=== PATIENT | female | born 1980 | race Caucasian/White ===

== ENCOUNTER → 2018-11-07 15:37 | Outpatient (CLI) | payer OTHER, SELFPAY ==
--- NOTE | 2018-11-07 15:45 | XR_ITS ---
PROCEDURE: XR ANKLE RT MIN 3V CLINICAL INDICATION: ACUTE RIGHT ANKLE PAIN COMPARISON: No exams were available for comparison FINDINGS: No fracture, dislocation, lytic change, or blastic change evident. No significant degenerative change IMPRESSION: No acute findings. Dictated by: Robert Jensen MD 11/07/2018 16:19 Electronically signed by Robert Jensen MD in [place] 11/07/2018 16:20
== END ==
PROVIDERS: PCP Family Medicine; Visit Provider Family Medicine
DX: M25.571 Pain in right ankle and joints of right foot (principal)
CPT/HCPCS: 73610

== ENCOUNTER 2020-11-18 18:45 | Emergency (ER) | payer OTHER, SELFPAY ==
[2020-11-18 19:30] VITALS: BP 141/96; PULSE 66; RESP 20; TEMP 37; O2SAT 96; BMI 30.2
--- NOTE | 2020-11-18 19:56 | HMH.EDUTC ---
[place] Disposition Clinical Impression: URI (upper respiratory infection) Qualifiers: URI type: unspecified URI Qualified Code(s): J06.9 - Acute upper respiratory infection, unspecified Disposition: Home, Self-Care Condition on Discharge: Good Instructions: Sore Throat, Acute Bronchitis Additional Instructions: ? Start antibiotic today. Be sure to complete entire prescription even if feeling better ? Monitor temp. Tylenol every 4 hours as needed and / or ibuprofen every 6 hours as needed ( As long as your primary care physician has told you that it ok to take both. For fever/aches/pains ER if no less than 101 despite Tylenol or Motrin ? Humidifier/vaporizer or hot steamy shower ? Mucinex for your cough Be sure to drink lots of water with this medication and while taking it *Start steroid today. Helps with inflammation therefore, cough and wheezing. Follow directions on the package. Reviewed side effects. Patient reports taking them before. Follow up IMMEDIATELY for new or worsening of symptoms OR no noticeable improvement over the next 48-72 hours. 911 immediately for any life threatening symptoms such as chest pain or difficulty breathing You were tested for today for COVID19 your test result should be back in the next 24-48 hours, you was given handout on how to log into the [facility] Portal to check your results if you have trouble you may call the [facility] You was given a handout with instructions for Self Quarantine and Self isolation for while you wait on test results and what to do if they are positive If you are positive the Health Dept will be contacting you also Make sure to take your Vitamins Vit. C Vit D and Zinc if you can take them Prescriptions: guaiFENesin [Mucinex 600mg tablet] 1 - 2 tab PO Q12HP PRN #20 tab PRN Reason: Congestion Transmission Status: Pending to [facility] # methylPREDNISolone [Medrol 4mg tab] 4 mg PO DIRECTED #21 tab Transmission Status: Pending to [facility] # Azithromycin [Z-Alex 250mg Tab] 250 mg PO DIRECTED #6 tab Transmission Status: Pending to [facility] # Referrals: Steve De Dios MD [Primary Care Provider] - As needed Forms: Work/School Release Time of Disposition: 20:07 Medical Decision Making - David Inquiry Pt receiving controlled substance: No David was queried for this patient: No Vital Signs: 11/18/20 19:30 Temperature 98.6 F Temperature Source Oral Pulse Rate [Right Brachial] 66 Respiratory Rate 20 Blood Pressure [Right Arm] 141/96 H Blood Pressure Mean [Right Arm] 111 Blood Pressure Source [Right Arm] Automatic Cuff 02 Sat by Pulse Oximetry 96 Oxygen Delivery Method Room Air [place] HPI - General Stated complaint: covid test, cough, SOA, body aches Time Seen by Provider: 11/18/20 19:56 Mode of Arrival: Ambulatory Source of Information: Patient Limitations: No Limitations Description of Symptoms (Recalled from Triage Doc. by RN): PATIENT C/O CHEST CONGESTION, COUGHING UP MUCOUS, AND SORE THROAT THAT STARTED YESTERDAY HEENT Symptoms (Recalled from RN notes): Yes Resp Symptoms (Recalled from RN notes): No Skin Symptoms (Recalled from RN notes): No MS Symptoms (Recalled from RN notes): No Functional Status (Recalled from RN notes): WNL - History of Present Illness Provider Complaint: Patient states that she is an everyday smoker States that she gets bronchitis about this time every year States that she has been having some cough and drainage States that at times she is coughing up some mucous Denies SOA at this time States that she wanted to come in and get it checked before it got too bad - Related Data Previous Rx's Medication Instructions Recorded Azithromycin [Z-Alex 250mg Tab] 250 mg PO DIRECTED #6 tab 11/18/20 guaiFENesin [Mucinex 600mg tablet] 1 - 2 tab PO Q12HP PRN #20 tab 11/18/20 methylPREDNISolone [Medrol 4mg 4 mg PO DIRECTED #21 tab 11/18/20 tab] Allergies Allergy/AdvReac
[2020-11-18 20:10] VITALS: BP 141/96; PULSE 66; RESP 20; TEMP 37; O2SAT 96
== END 2020-11-18 20:13 | disposition home or self-care (01) ==
PROVIDERS: Emergency Provider Nurse Practitioner; PCP Family Medicine
DX: J06.9 Acute upper respiratory infection, unspecified (principal); Z20.822 Contact with and (suspected) exposure to COVID-19; F17.210 Nicotine dependence, cigarettes, uncomplicated
CPT/HCPCS: 99202; C9803; G0463; U0003; U0005

== ENCOUNTER 2023-11-17 06:24 | Emergency (ER) | payer OTHER, SELFPAY ==
[2023-11-17] VITALS (8 sets, daily range): BP systolic 139–167; BP diastolic 84–116; PULSE 54–93; RESP 16–18; TEMP 36.8–36.9; O2SAT 92–99; BMI 28.8
--- NOTE | 2023-11-17 06:38 | CT_ITS ---
FINAL REPORT TECHNIQUE: Oral and IV contrast enhanced exam This study was performed with techniques to keep radiation doses as low as reasonably achievable, (ALARA). Individualized dose reduction techniques using automated exposure control or adjustment of mA and/or kV according to the patient''s size were employed. CLINICAL HISTORY: abd/rectal pain, BRBPR COMPARISON: None FINDINGS: Abdomen: Lung bases are clear. The gallbladder is unremarkable. Liver has an unremarkable CT appearance. The gallbladder is unremarkable in appearance. The spleen, pancreas and adrenal glands are unremarkable. Kidneys show no mass or obstruction. There is long segment wall thickening extending from the splenic flexure of the colon distally, infectious colitis versus inflammatory bowel disease most likely, as ischemia would be unusual in this age group. The central mesenteric vessels are patent. Pelvis: The appendix is not visualized. The wall thickening in the descending colon extends to involve the proximal sigmoid colon. No fluid collection or adenopathy is seen. There is no perirectal abscess identified, and an IUD is present in the pelvis. IMPRESSION: Long segment wall thickening of the descending and proximal sigmoid colon, most likely infectious colitis or inflammatory bowel disease. Reviewed, Interpreted and Dictated by Gregorio Cardona MD Transcribed by Marion Cunningham Authenticated and . [facility]
--- NOTE | 2023-11-17 06:40 | ED_ITS ---
Discharge Plan Disposition Patient Disposition: Home, Self-Care Prescriptions Prescriptions: New ondansetron 4 mg tablet,disintegrating 4 mg PO Q6H PRN (Reason: nausea and vomiting) Qty: 14 0RF No Action azithromycin 250 MG tablet 250 mg PO DIRECTED Qty: 6 0RF Rx Instructions: Take two (2) tablets on day #1, then one (1) tablet day #2 thru #5 methylprednisolone 4 MG tablet 4 mg PO DIRECTED Qty: 21 0RF Rx Instructions: Take as directed on package instructions guaifenesin 600 MG tablet extended release 12hr 1 - 2 tab PO Q12HP PRN (Reason: Congestion) Qty: 20 0RF Referrals Follow up/Referrals: Case Licea MD [Staff Physician] - See instructions Steve De Dios MD [Primary Care Provider] - See instructions Activity Restrictions/Add. Instructions Additional Instructions/Restrictions: Take Zofran as needed for nausea and vomiting. Take Tylenol and ibuprofen for abdominal pain. Call GI doctor clinic to schedule an outpatient follow-up appointment. If you have a bowel movement, collected and present the sample to the lab. Outpatient order has been placed. Clinical Impressions Clinical Impression: Colitis Abdominal pain Qualifiers: Abdominal location: generalized Qualified Code(s): R10.84 - Generalized abdominal pain Instructions Patient Instructions: DI for Acute Abdominal Pain Print Language Print Language: [place] Island[place] Discharge ED Provider: Juan Sierra General Adult HPI <Juan Sierra MD - Last Filed: 11/17/23 07:16> General Chief complaint: Abdominal Pain Stated complaint: abd pain, bleeding from rectum Time Seen by Provider: 11/17/23 06:29 History of Present Illness HPI narrative: 42-year-old female presents for abdominal pain and bloated blood per rectum. She reports that she suffers from constipation and was having crampy abdominal pain this morning. She had a large bowel movement and then subsequently had repeated episodes of bloody stool with bright red blood per rectum. She reports she has never had anything like this happen before, no history of IBS, IBD etc. She denies history of hemorrhoids fissures etc. She has an IUD and does not typically have menstrual periods. She reports no fever at home. The abdominal pain she describes as primarily lower abdominal/rectal, but was having some upper abdominal pain earlier today. No prior surgeries. Related Data Previous Rx's ?Medication ?Instructions ?Recorded azithromycin 250 mg tablet 250 mg PO DIRECTED #6 tabs 11/18/20 guaifenesin 600 mg tablet, 1 - 2 tab PO Q12HP PRN Congestion 11/18/20 extended release 12 hr #20 tabs methylprednisolone 4 mg tablet 4 mg PO DIRECTED #21 tabs 11/18/20 ondansetron 4 mg disintegrating 4 mg PO Q6H PRN nausea and 11/17/23 tablet vomiting #14 tabs Allergies Allergy/AdvReac Type Severity Reaction Status Date / Time No Known Allergies Allergy Verified 11/18/20 19:56 PFSH <Juan Sierra MD - Last Filed: 11/17/23 07:16> [facility] Disclaimer: The information contained in this section may have been updated after the patient was seen, as this information can be updated by other users. Social History Smoking Status: Current every day smoker alcohol intake: never current occupational status: student Travel in the last 8 weeks: None <Juan Sierra MD - Last Filed: 11/17/23 07:16> ROS Obtained: Yes All systems reviewed & no additional complaints except as documented Physical Exam <Juan Sierra MD - Last Filed: 11/17/23 07:16> General General appearance: alert Comment: Uncomfortable appearing Head Head exam: atraumatic and normocephalic Eye Eye exam: Present normal appearance, PERRL and EOMI ENT ENT exam: Present normal oropharynx and normal external ear exam Neck Neck exam: Present normal inspection and full ROM Chest Chest inspection: Present normal inspection and symmetric chest wall rise; Absent tenderness Respiratory Respiratory exam: Present normal lung sounds bilaterally; Absent respiratory distress Cardiovascular Cardiovascular exam: Present regular rate and normal rhythm Abdominal Exam Abdominal exam: Present soft and tenderness (Mild); Absent distention or guarding Rectal Exam Rectal exam: Present normal inspection and normal rectal tone; Absent hemorrhoids comment: No anal fissures, no blood in the rectal vault Extremities Exam Extremities exam: Present normal inspection; Absent edema or joint swelling Back Exam Back exam: Present normal inspection; Absent tenderness Neurological Exam Neurological exam: Present alert and oriented X3; Absent motor sensory deficit Psychiatric Psychiatric exam: Present normal affect and normal mood Skin Skin exam: Present warm, dry and normal color Lymphatic Lymphatic Findings: no adenopathy Medical Decision Making <Juan Sierra MD - Last Filed: 11/17/23 07:16> Medical Records Medical records reviewed: Yes I reviewed the patient's medical records. Screening: Per USPSTF and CDC recommendations, given the prevalence of disease in our region, it is our hospital?s policy to screen for HIV and viral Hepatitis for all patients aged 18 and over and those with ongoing risk factors. David Inquiry Pt receiving controlled substance: No David was queried for this patient: No Vital Signs: 11/17/23 06:25 11/17/23 06:32 11/17/23 06:55 Temperature 98.5 F Temperature Source Oral Pulse Rate Pulse Rate [Right] 93 H Respiratory Rate 18 Blood Pressure 158/112 H 167/116 H Blood Pressure [Right Arm] 155/112 H Blood Pressure Mean 127 133 Blood Pressure Mean [Right Arm] 126 Blood Pressure Source [Right Arm] Automatic Cuff Blood Pressure Position [Right Arm] Sitting 02 Sat by Pulse Oximetry 98 Oxygen Delivery Method Room Air 11/17/23 07:00 11/17/23 08:00 11/17/23 08:30 Temperature Temperature Source Pulse Rate 59 L 54 L 60 Pulse Rate [Right] Respiratory Rate Blood Pressure 151/90 H 146/84 H 141/89 H Blood Pressure [Right Arm] Blood Pressure Mean Blood Pressure Mean [Right Arm] Blood Pressure Source [Right Arm] Blood Pressure Position [Right Arm] 02 Sat by Pulse Oximetry 97 94 L 92 L Oxygen Delivery Method Room Air Room Air Lab Data Lab results reviewed: Yes I reviewed the patient's lab results. Lab Results 11/17/23 06:34: Urine Color Yellow, Urine Appearance Clear, Urine pH 7.0, Ur Specific [place] 1.015, Urine Protein Negative, Urine Glucose (UA) Negative, Urine Ketones Negative, Urine Blood Negative, Urine Nitrate Negative, Urine Bilirubin Negative, Urine Urobilinogen 0.2, Ur Leukocyte Esterase Negative, Urine RBC None, Urine WBC None, Ur Squamous Epith Cells 3-5, Urine Bacteria None 11/17/23 06:48: WBC 12.7 H, RBC 4.78, Hgb 14.5, Hct 45.1, MCV 94.5, MCH 30.4, MCHC 32.2, RDW 13.2, Plt Count 325, MPV 7.4, Neut % (Auto) 75.7, Lymph % (Auto) 19.3, [place] % (Auto) 3.8, Eos % (Auto) 0.9, Baso % (Auto) 0.3, Neut # (Auto) 9.6 H, Lymph # (Auto) 2.4, [place] # (Auto) 0.5, Eos # (Auto) 0.1, Baso # (Auto) 0.0, Sodium 137, Potassium 3.8, Chloride 109 H, Carbon Dioxide 21 L, Anion Gap 10.8, BUN 10, Creatinine 0.70, Estimated Creat Clear 149, Estimated GFR 93, Est GFR ( Amer) 112, Glucose 134 H, Calcium 10.0, Total Bilirubin 0.7, AST 37 H, ALT 50, Alkaline Phosphatase 56, Total Protein 7.7, Albumin 4.8, Globulin 2.9, Albumin/Globulin Ratio 1.7, Lipase 188, Serum HCG, Qual Negative, HIV 1&2 Antibody Rapid Nonreactive 11/17/23 06:48 11/17/23 06:48 Orders (Tests/Meds): ED MEDICATIONS Discontinued Medications Generic Name Dose Route Start Last Admin Trade Name Michael PRN Reason Stop Dose Admin Iopamidol 75 ml 11/17/23 07:44 11/17/23 07:45 Iopamidol-370 (76%);100ml Bottle IV 11/17/23 07:45 75 ml ONCE ONE Administration Ketorolac Tromethamine 30 mg 11/17/23 06:38 11/17/23 06:57 Ketorolac 30mg/Ml Vial IV 11/17/23 06:39 30 mg ONCE ONE Administration Morphine Sulfate 4 mg 11/17/23 06:38 11/17/23 06:57 Morphine 4mg/Ml Syringe IV 11/17/23 06:39 4 mg ONCE ONE Administration Morphine Sulfate 4 mg 11/17/23 08:49 11/17/23 08:50 Morphine 4mg/Ml Syringe IV 11/17/23 08:50 4 mg ONCE ONE Administration Ondansetron HCl 4 mg 11/17/23 06:58 11/17/23 06:59 Ondansetron 4mg/2ml Vial IV 11/17/23 06:59 4 mg ONCE ONE Administration Sodium Chloride 10 ml 11/17/23 07:44 11/17/23 07:45 Sodium Chloride 0.9% 10ml Syr (Rad Only) IV 11/17/23 07:45 10 ml ONCE ONE Administration ORDERS Category Date Time Status CT abdomen pelvis w con Stat Cat Scan 11/17/23 06:38 Completed CBC w/Auto Diff [Complete Blood Count Auto Diff] Stat Lab 11/17/23 06:48 Completed CMP [Comprehensive Metabolic Panel] Stat Lab 11/17/23 06:48 Completed Diarrhea 23 Panel, PCR Stat Lab 11/17/23 06:38 Ordered HCG Qualitative, Serum Stat Lab 11/17/23 06:48 Completed HIV (1&2) Antibody Rapid Stat Lab 11/17/23 06:48 Completed Hep C Ab with Reflex to RNA Stat Lab 11/17/23 06:48 Received Lipase Stat Lab 11/17/23 06:48 Completed UA [Urinalysis and Microscopic] Stat Lab 11/17/23 06:34 Completed Medical Decision Narrative: 42-year-old female with history of constipation presents for rectal/lower abdominal pain and bright red blood per rectum after having large bowel movement and then subsequent frequent watery stools this morning. History was obtained via interactive discussion with patient, chart review. On arrival, patient is [afebrile, hemodynamically stable, satting appropriately, alert, oriented x4, GCS 15], moving all extremities spontaneously. Full physical exam performed and significant for normal rectal exam without hemorrhoids or fissures. Differential includes but is not limited to internal hemorrhoid, anal fissure, colitis, IBD, upper GI bleed. Patient was given morphine and Zofran and Toradol for symptomatic management and correction of underlying abnormalities. Workup initiated including CBC CMP stool studies urinalysis CT abdomen pelvis with IV contrast. At this time care handed off to oncoming physician. <Patricio Suarez MD - Last Filed: 11/17/23 09:47> Vital Signs: 11/17/23 06:25 11/17/23 06:32 11/17/23 06:55 Temperature 98.5 F Temperature Source Oral Pulse Rate Pulse Rate [Right] 93 H Respiratory Rate 18 Blood Pressure 158/112 H 167/116 H Blood Pressure [Right Arm] 155/112 H Blood Pressure Mean 127 133 Blood Pressure Mean [Right Arm] 126 Blood Pressure Source [Right Arm] Automatic Cuff Blood Pressure Position [Right Arm] Sitting 02 Sat by Pulse Oximetry 98 Oxygen Delivery Method Room Air 11/17/23 07:00 11/17/23 08:00 11/17/23 08:30 Temperature Temperature Source Pulse Rate 59 L 54 L 60 Pulse Rate [Right] Respiratory Rate Blood Pressure 151/90 H 146/84 H 141/89 H Blood Pressure [Right Arm] Blood Pressure Mean Blood Pressure Mean [Right Arm] Blood Pressure Source [Right Arm] Blood Pressure Position [Right Arm] 02 Sat by Pulse Oximetry 97 94 L 92 L Oxygen Delivery Method Room Air Room Air Lab Data Lab Results 11/17/23 06:34: Urine Color Yellow, Urine Appearance Clear, Urine pH 7.0, Ur Specific [place] 1.015, Urine Protein Negative, Urine Glucose (UA) Negative, Urine Ketones Negative, Urine Blood Negative, Urine Nitrate Negative, Urine Bilirubin Negative, Urine Urobilinogen 0.2, Ur Leukocyte Esterase Negative, Urine RBC None, Urine WBC None, Ur Squamous Epith Cells 3-5, Urine Bacteria None 11/17/23 06:48: WBC 12.7 H, RBC 4.78, Hgb 14.5, Hct 45.1, MCV 94.5, MCH 30.4, MCHC 32.2, RDW 13.2, Plt Count 325, MPV 7.4, Neut % (Auto) 75.7, Lymph % (Auto) 19.3, [place] % (Auto) 3.8, Eos % (Auto) 0.9, Baso % (Auto) 0.3, Neut # (Auto) 9.6 H, Lymph # (Auto) 2.4, [place] # (Auto) 0.5, Eos # (Auto) 0.1, Baso # (Auto) 0.0, Sodium 137, Potassium 3.8, Chloride 109 H, Carbon Dioxide 21 L, Anion Gap 10.8, BUN 10, Creatinine 0.70, Estimated Creat Clear 149, Estimated GFR 93, Est GFR ( Amer) 112, Glucose 134 H, Calcium 10.0, Total Bilirubin 0.7, AST 37 H, ALT 50, Alkaline Phosphatase 56, Total Protein 7.7, Albumin 4.8, Globulin 2.9, Albumin/Globulin Ratio 1.7, Lipase 188, Serum HCG, Qual Negative, HIV 1&2 Antibody Rapid Nonreactive Orders (Tests/Meds): ED MEDICATIONS Discontinued Medications Generic Name Dose Route Start Last Admin Trade Name Freq PRN Reason Stop Dose Admin Iopamidol 75 ml 11/17/23 07:44 11/17/23 07:45 Iopamidol-370 (76%);100ml Bottle IV 11/17/23 07:45 75 ml ONCE ONE Administration Ketorolac Tromethamine 30 mg 11/17/23 06:38 11/17/23 06:57 Ketorolac 30mg/Ml Vial IV 11/17/23 06:39 30 mg ONCE ONE Administration Morphine Sulfate 4 mg 11/17/23 06:38 11/17/23 06:57 Morphine 4mg/Ml Syringe IV 11/17/23 06:39 4 mg ONCE ONE Administration Morphine Sulfate 4 mg 11/17/23 08:49 11/17/23 08:50 Morphine 4mg/Ml Syringe IV 11/17/23 08:50 4 mg ONCE ONE Administration Ondansetron HCl 4 mg 11/17/23 06:58 11/17/23 06:59 Ondansetron 4mg/2ml Vial IV 11/17/23 06:59 4 mg ONCE ONE Administration Sodium Chloride 10 ml 11/17/23 07:44 11/17/23 07:45 Sodium Chloride 0.9% 10ml Syr (Rad Only) IV 11/17/23 07:45 10 ml ONCE ONE Administration ORDERS Category Date Time Status CT abdomen pelvis w con Stat Cat Scan 11/17/23 06:38 Completed CBC w/Auto Diff [Complete Blood Count Auto Diff] Stat Lab 11/17/23 06:48 Completed CMP [Comprehensive Metabolic Panel] Stat Lab 11/17/23 06:48 Completed Diarrhea 23 Panel, PCR Stat Lab 11/17/23 06:38 Ordered HCG Qualitative, Serum Stat Lab 11/17/23 06:48 Completed HIV (1&2) Antibody Rapid Stat Lab 11/17/23 06:48 Completed Hep C Ab with Reflex to RNA Stat Lab 11/17/23 06:48 Received Lipase Stat Lab 11/17/23 06:48 Completed UA [Urinalysis and Microscopic] Stat Lab 11/17/23 06:34 Completed Medical Decision Narrative: 42-year-old female with history of constipation presents for rectal/lower abdominal pain and bright red blood per rectum after having large bowel movement and then subsequent frequent watery stools this morning. History was obtained via interactive discussion with patient, chart review. On arrival, patient is [afebrile, hemodynamically stable, satting appropriately, alert, oriented x4, GCS 15], moving all extremities spontaneously. Full physical exam performed and significant for normal rectal exam without hemorrhoids or fissures. Differential includes but is not limited to internal hemorrhoid, anal fissure, colitis, IBD, upper GI bleed. Patient was given morphine and Zofran and Toradol for symptomatic management and correction of underlying abnormalities. Workup initiated including CBC CMP stool studies urinalysis CT abdomen pelvis with IV contrast. At this time care handed off to oncoming physician. MD Erick: I assumed care of this patient at the time of shift change at approximately 7 AM. CBC shows WBC 12, CMP unremarkable, lipase wnl, UA shows no UTI. CT pending. CT was independently interpreted by me revealing of colonic thickening. Radiology report read as likely infectious colitis versus IBD. Most likely diagnosis is infectious colitis given constellation of patient's symptoms and presentation. On reevaluation, the patient was tolerating oral intake and in no acute distress. Abdominal pain moderately controlled. Standing order for stool studies was placed as she did not have a bowel movement here and organism directed therapy would be appropriate given her bloody diarrhea. Admission considered, however not indicated at this time. Appropriate for outpatient follow-up and discharge. Also provided GI referral. Prescription for Zofran sent for nausea and vomiting. Return precautions given. Procedures <Juan Sierra MD - Last Filed: 11/17/23 07:16> Risk/Benefits of Procedure(s) Were Explained: Yes Critical Care <Juan Sierra MD - Last Filed: 11/17/23 07:16> Critical Care Time Critical Care Time: No
[2023-11-17 06:44] LABS: Microscopic, Urine URINE MICROSCOPIC (MICROSCOPIC)
[2023-11-17 06:53] LABS: Appearance,Urine CLEAR (Clear); Bilirubin,Urine Negative (Negative); Blood, Urine Negative (Negative); Color,Urine YELLOW (Yellow); Glucose,Urine (UA) Negative (Negative); Ketones,Urine Negative (Negative); Leukocyte Esterase,Urine Negative (Negative); Nitrate,Urine Negative (Negative); Protein,Urine Negative (Negative); Specific Gravity, Urine 1.015 (1.005-1.030); Urobilinogen,Urine 0.2 EU/dl (0.2)
[2023-11-17] MEDS: MORPHINE 4MG/ML SYRINGE 4 MG IV ×2 (06:57→08:50)
[2023-11-17] MEDS: KETOROLAC 30MG/ML VIAL 30 MG IV (06:57)
[2023-11-17] MEDS: ONDANSETRON 4MG/2ML VIAL 4 MG IV (06:59)
[2023-11-17 07:09] LABS: HCG Qualitative, Serum Negative (Negative)
[2023-11-17 07:11] LABS: Basophils % 0.3 % (0.1-2.0); Eosinophils # 0.1 K/mm3 (0.0-0.4); Eosinophils % 0.9 % (0.1-12.0); Hematocrit 45.1 % (37.0-47.0); Hemoglobin 14.5 g/dL (12.2-16.2); Lymphocytes # 2.4 K/mm3 (0.7-4.5); Lymphocytes % 19.3 % (10-50); Mean Corpuscular HGB Conc 32.2 g/dL (31.8-35.4); Mean Corpuscular Hemoglobin 30.4 pg (27.0-31.2); Mean Corpuscular Volume 94.5 fl (81-99); Mean Platelet Volume 7.4 fl (7.4-10.4); Monocytes # 0.5 K/mm3 (0.1-1.0); Monocytes % 3.8 % (1.7-9.3); Neutrophils # 9.6 K/mm3 (1.8-7.8); Neutrophils % 75.7 % (37.0-80.0); Platelet Count 325 K/mm3 (142-424); Red Blood Count 4.78 M/mm3 (4.20-5.40); Red Cell Distribution Width 13.2 % (11.5-17.5); White Blood Count 12.7 K/mm3 (4.8-10.8)
[2023-11-17 07:13] LABS: Alanine Aminotransferase 50 U/L (12-78); Albumin Level 4.8 g/dl (3.5-5.0); Albumin/Globulin Ratio 1.7 (1.1-1.8); Alkaline Phosphatase 56 U/L (38-126); Anion Gap 10.8 mEq/L (5-15); Aspartate Amino Transferase 37 U/L (14-36); Bilirubin,Total 0.7 mg/dl (0.2-1.3); Blood Urea Nitrogen 10 mg/dl (7-17); Carbon Dioxide 21 mmol/L (22.0-30.0); Chloride 109 mmol/L (98-107); Creatinine Clearance Estimated 149 mL/min (50-200); Estimated Glomerular Filt Rate 93 ml/min (>60); GFR (African American) 112 ML/MIN (>60); Globulin 2.9 g/dL (1.3-3.2); Glucose 134 mg/dl (74-100); Lipase 188 U/L (23-300); Potassium 3.8 mmoL/L (3.5-5.1); Sodium 137 mmol/L (136-145); Total Protein,Serum 7.7 g/dl (6.3-8.2)
[2023-11-17] MEDS: SODIUM CHLORIDE 0.9% 10ML SYR (RAD ONLY) 10 ML IV (07:45)
[2023-11-17] MEDS: IOPAMIDOL-370 (76%);100ML BOTTLE 75 ML IV (07:45)
[2023-11-17 08:28] LABS: HIV (1&2) Antibody Rapid NONREACTIVE (NONREACTIVE)
[2023-11-18 09:31] LABS: HCV Ab Non Reactive (Non Reactive)
== END 2023-11-17 10:02 | disposition home or self-care (01) ==
PROVIDERS: Emergency Provider Emergency Medicine; PCP Family Medicine
DX: R10.84 Generalized abdominal pain (principal); K52.9 Noninfective gastroenteritis and colitis, unspecified; K62.5 Hemorrhage of anus and rectum
CPT/HCPCS: 74177; 80053; 81001; 83690; 84703; 85025; 86803; 87389; 96374; 96375; 96376; 99285; J1885; J2270; J2405; Q9967

== ENCOUNTER 2023-11-20 09:11 | Outpatient (CLI) | payer OTHER, SELFPAY | END 2023-11-20 23:59 | disposition home or self-care (01) | PROVIDERS: PCP Student in an Organized Health Care Education/Training Program; Visit Provider Student in an Organized Health Care Education/Training Program | DX: Z02.9 Encounter for administrative examinations, unspecified (principal) ==